=== PATIENT | female | born 1935 | race Two or more races ===

== ENCOUNTER 2021-08-22 | Emergency (ER) | payer MEDICARE, OTHER ==
[~2021-08-22] VITALS: Ht 160 cm; Wt 66.2 kg
[2021-08-22 00:59] VITALS: BP 160/83
== END 2021-08-22 00:46 | disposition left against medical advice (07) ==
LOC: ER 00:39
DX: I10 Essential (primary) hypertension (principal); Z53.21 Procedure and treatment not carried out due to patient leaving prior to being seen by health care provider

== ENCOUNTER 2023-01-03 20:10 | Emergency (ER) | payer MEDICARE, OTHER ==
[~2023-01-03] VITALS: Ht 154.9 cm; Wt 64.3 kg
[2023-01-03 20:43] VITALS: BP 135/70; RESP 18; O2SAT 96
[2023-01-03 23:38] VITALS: PULSE 83
== END 2023-01-03 21:39 | disposition left against medical advice (07) ==
LOC: ER 20:10
DX: I10 Essential (primary) hypertension (principal)
CPT/HCPCS: 93005

== ENCOUNTER 2024-04-22 17:09 | Emergency (ER) | payer MEDICARE, OTHER ==
[~2024-04-22] VITALS: Ht 162.6 cm; Wt 64.0 kg
[2024-04-22] MEDS: HYDROcodone-ACET 5/325MG TAB PO ONE (18:00)
--- NOTE | 2024-04-22 18:31 | DVH ---
CLINICAL INDICATION: Pain TECHNIQUE: 3 radiographic views of the cervical spine were obtained. Comparison: None FINDINGS/IMPRESSION: There is no evidence of acute fracture or spondylolisthesis Moderate to severe degenerative changes of the cervical spine. If symptoms persist, consider CT/ MRI for further evaluation.
[2024-04-22 19:00] VITALS: BP 132/78; TEMP 98.1
[2024-04-22 19:03] VITALS: PULSE 103; RESP 18; O2SAT 99
[2024-04-22] MEDS ORDERED: HYDR-4902 PO (19:25)
--- NOTE | 2024-04-22 19:26 | ED.PDOC ---
History of Present Illness HPI Comments This patient is an 88-year-old female who arrives the ED today with the family members due to complaints of severe neck pain concerns as well as blood pressure concerns. Patient states he had a of letters from his elevated, but at arrival her blood pressure was stave off. Family states the patient that utilized her medication possibly multiple times to address that concern. Patient has not followed up with the primary care provider for discussions related to her blood pressure issues. Additionally, patient complains of [id number] bilateral posterior neck pain for the past two days. Patient denies any traumatic events. Patient denies any history of cervical spine co ncerns. Vital signs were stable on arrival. 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 Family History Family History: Reviewed,noncontributory to illness, No family hx of Cancer, No family hx of DM, No family hx of Heart lashon, No family hx of HTN, No family hx ofKidney lashon, No family hx of Liver lashon, No family hx of Lung lashon, No family hx of Stroke Social History Smoker: Non-Smoker Alcohol: Denies ETOH Use Drugs: Denies Drug Use Lives In: Home Constitutional: denies: chills, diaphoresis, fatigue, fever, malaise, sweats, weakness, others EENTM: denies: blurred vision, double vision, ear bleeding, ear discharge, ear drainage, ear pain, ear ringing, eye pain, eye redness, hearing loss, mouth pain, mouth swelling, nasal discharge, nose bleeding, nose congestion, nose pain, photophobia, tearing, throat pain, throat swelling, voice changes, others Respiratory: denies: cough, hemoptysis, orthopnea, SOB at rest, shortness of breath, SOB with excertion, stridor, wheezing, others Cardiovascular: denies: chest pain, dizzy spells, diaphoresis, Dyspnea on exertion, edema, irregular heart beat, left arm pain, lightheadedness, palpitations, PND, syncope, others Gastrointestinal: denies: abdomen distended, abdominal pain, blood streaked bowels, constipated, diarrhea, dysphagia, difficulty swallowing, hematemesis, melena, nausea, poor appetite, poor fluid intake, rectal bleeding, rectal pain, vomiting, others Genitourinary: denies: abnormal vagina bleeding, burning, dyspareunia, dysuria, flank pain, frequency, hematuria, incontinence, pain, , vagina discharge, urgency, others Neurological: denies: dizziness, fainting, headache, left sided numbness, left sided weakness, numbness, paresthesia, pre-existing deficit, right sided numbness, right sided weakness, seizure, speech problems, tingling, tremors, weakness, others Musculoskeletal: reports: neck pain; denies: back pain, gout, joint pain, joint swelling, muscle pain, muscle stiffness, others Integumetry: denies: bruises, change in color, change in hair/nails, dryness, laceration, lesions, lumps, rash, wounds, others Allergic/Immunocompromised: denies: Difficulty Healing, Frequent Infections, Hives, Itching, others Hematologic/Lymphatic: denies: anemia, blood clots, easy bleeding, easy bruising, swollen glands, others Endocrine: denies: excessive hunger, excessive sweating, excessive thirst, excessive urination, flushing, intolerance to cold, intolerance to heat, unexplained weight gain, unexplained weight loss, others Psychiatric: denies: anxiety, bipolar disorder, depression, hopeless, panic disorder, schizophrenia, sleepless, suicidal, others Physical Exam General Appearance: Moderate Distress (Due to neck pain concerns), Normal HEENT: Normal ENT Inspection, Pharynx Normal, TMs Normal Neck: Other (Diffuse bilateral posterior cervical tenderness to palpation throughout. Moderate hypertonicity appreciated. No step-offs noted. Moderate reduced range of motion.) Respiratory: Chest Non-Tender, Lungs Clear, No Accessory Muscle Use, No Respiratory Distress, Normal Breath Sounds Cardiovascular: No Edema, No JVD, No Murmur, No Gallop, Normal Peripheral Pulses, Regular Rate/Rhythm Breast Exam: Deferred Gastrointestinal: No Organomegaly, Non Tender, No Pulsatile Mass, Normal Bowel Sounds, Soft Genitalia: Deferred Pelvic: Deferred Rectal: Deferred Extremities: No calf tenderness, Normal capillary refill, Normal inspection, Normal range of motion, Non-tender, No pedal edema Neurologic: Alert, offline cutter II-XII nml as Tested, No Motor Deficits, Normal Affect, Normal Mood, No Sensory Deficits Cerebellar Function: Normal Reflexes: Normal Skin: Dry, Normal Color, Warm Lymphatic: No Adenopathy Was a procedure done? Was a procedure done?: No Differential Dx Considerations may include: Degenerative disc disease of the cervical spine, cervical muscle strain, neck pain, hypertension X-Ray, Labs, Meds, VS Vital Signs Date Time Temp Pulse Resp B/P (MAP) Pulse Ox O2 Delivery O2 Flow Rate FiO2 04/22/24 19:03 103 18 99 Room Air* 0 21 04/22/24 19:00 98.1 106 18 132/78 (96) 97 98.1 04/22/24 17:25 98.9 71 16 132/57 (82) 98 Current Medications Medications (Trade) Dose Ordered Sig/Kareen Route Start Time Stop Time Status Last Admin Acetaminophen/ Hydrocodone Bitart ([place] 5/325MG Tab) 1 tab ONCE ONCE PO 04/22/24 18:00 04/22/24 18:01 DC 04/22/24 18:00 X-Ray, Labs, Meds, VS Comment All studies performed the ED were evaluated by me personally. Cervical spine series revealed degenerative disc disease throughout the cervical spine. No acute fractures were appreciated. Advised patient and family to follow up with primary care provider for discussions related to her cervical spine pain concerns and additionally, patient should have conversation with the primary care provider about what appears to be not well controlled hypertensive concerns and possible excessive medication use. Patient can utilize Tylenol and or Motrin as needed for cervical spine pain issues. Patient will be prescribed a short course of low-dose narcotic medication. Time of 1ST Reevaluation: 19:23 Reevaluation 1ST: Improved Consultation: PCP Patient Education/Counseling: Diagnosis, Treatment Family Education/Counseling: Diagnosis, Treatment Departure 1 Departure Time of Disposition: 19:23 Impression: Primary Impression: Degenerative joint disease of cervical spine Disposition: 01 HOME / SELF CARE / HOMELESS Condition: Stable Additional Instructions: Patient should utilize medication as needed for symptomatic relief as well as ice therapy. Patient needs to follow up with the primary care provider for discussions related to her degenerative disc disease of the cervical spine as well as what appears to be possible poorly controlled hypertensive concerns. e-Prescriptions Hydrocodone-Acetaminophen (Hydrocodone Bitartrate/AC 5-325 mg) 1 Tab Tab 1 TAB PO Q6HP PRN, #10 TAB Prov: DMITRIY NEWTON PAC 04/22/24 Discharged With: Self, Relative Critical Care Note Critical Care Time?: No Stability Stability form required: No Heart Score Heart Score: Heart Score Response (Comments) Value History N/A 0 EKG N/A 0 Age N/A 0 Risk Factors N/A 0 Troponin N/A 0 Total 0 DMITRIY NEWTON PAC Apr 22, 2024 19:26
[2024-04-22 21:02] VITALS: PULSE 106; RESP 18; O2SAT 97
== END 2024-04-22 21:00 | disposition home or self-care (01) ==
LOC: ER 17:09
DX: M47.812 Spondylosis without myelopathy or radiculopathy, cervical region (principal); M54.2 Cervicalgia; I10 Essential (primary) hypertension
CPT/HCPCS: 72040

== ENCOUNTER 2024-04-25 16:46 | Inpatient (IN) | payer MEDICARE, OTHER ==
[~2024-04-25] VITALS: Ht 162.6 cm; Wt 62.0 kg
[~2024-04-25 16:46] MED LIST: HYDR-4902 PO
--- NOTE | 2024-04-25 18:03 | DVH ---
Exam: CT CT AB PEL WO CON-NO ORAL OR IV History: L flank pain Comparison Study: None available at time of dictation. Technique: Multidetector CT of the abdomen and pelvis without contour. Axial, coronal and sagittal mu ltiplanar reformats were performed by the technologist on a separate workstation. Radiation Dose Information: CT Dose: CTDI volume is 8.95 mGy. Dose-length product is 456.02 mGy*cm Findings: Bibasilar atelectasis/scarring. Partially visualized heart is normal in size. Trace pericardial eff usion. Sub cm hypodense hepatic lesion that is too small to characterize. Otherwise, liver, spleen, gallbla dder, pancreas and right adrenal glands unremarkable. 1.5 cm left adrenal nodule measuring up to 19 H ounsfield units. Suggest a small splenule of the left upper abdominal quadrant. There is mild nonspecific bilateral perirenal fat stranding. No renal calculi or hydronephrosis. Bila teral ureters and urinary bladder are unremarkable. Uterus and adnexa unremarkable. Stomach is unremarkable. Small bowel loops unremarkable. Appendix is unremarkable. Large amount of fe monica material within the colon. Colonic diverticulosis without diverticulitis. No evidence of intraperitoneal free air. Minimal mesenteric edema. Atherosclerotic calcification of t he aorta with dilatation of the infrarenal aorta up to 2.1 cm. No significant lymphadenopathy. Tiny fat containing umbilical hernia. Compression fractures of inferior endplate of L2 and superior e ndplate of L3 of unknown chronicity. Multilevel moderate to severe degenerative changes of the lumbar spine. Diffuse demineralization. IMPRESSION: Mild nonspecific bilateral perirenal fat stranding. Correlate for possible infectious process. No hy dronephrosis or renal calculi bilaterally. Constipation. Colonic diverticulosis without diverticulitis. Impression fracture of inferior endplate of L2 and superior endplate of L3 with minimal loss of verte bral body height of unknown chronicity. Additional findings as above.
--- NOTE | 2024-04-25 18:14 | ED.PDOC ---
History of Present Illness HPI Comments 88Y F with PMHx HTN presents to ED for chief complaint lt hip pain and back pain x3days. Hip pain radiates down lt leg. Pt denies falls/trauma. Pt denies n/v/d and dysuria. Pt was seen at [facility] on 04/22/2024 for dx DJD c-spine and was sent home with Allen. Pt states she does not want to take the Allen and does not want anything strong. Pt states she is usually in bed at home and uses a walker when ambulating. Per pt's family member, pt is having an increased difficulty ambulating, lives alone and they are concerned she may fall. 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 Family History Family History: Reviewed,noncontributory to illness, No family hx of Cancer, No family hx of DM, No family hx of Heart lashon, No family hx of HTN, No family hx ofKidney lashon, No family hx of Liver lashon, No family hx of Lung lashon, No family hx of Stroke Social History Smoker: Non-Smoker Alcohol: Denies ETOH Use Drugs: Denies Drug Use Lives In: Home Constitutional: denies: chills, diaphoresis, fatigue, fever, malaise, sweats, weakness, others EENTM: denies: blurred vision, double vision, ear bleeding, ear discharge, ear drainage, ear pain, ear ringing, eye pain, eye redness, hearing loss, mouth pain, mouth swelling, nasal discharge, nose bleeding, nose congestion, nose pain, photophobia, tearing, throat pain, throat swelling, voice changes, others Respiratory: denies: cough, hemoptysis, orthopnea, SOB at rest, shortness of breath, SOB with excertion, stridor, wheezing, others Cardiovascular: denies: chest pain, dizzy spells, diaphoresis, Dyspnea on exertion, edema, irregular heart beat, left arm pain, lightheadedness, palpitations, PND, syncope, others Gastrointestinal: denies: abdomen distended, abdominal pain, blood streaked bowels, constipated, diarrhea, dysphagia, difficulty swallowing, hematemesis, melena, nausea, poor appetite, poor fluid intake, rectal bleeding, rectal pain, vomiting, others Genitourinary: denies: abnormal vagina bleeding, burning, dyspareunia, dysuria, flank pain, frequency, hematuria, incontinence, pain, , vagina discharge, urgency, others Neurological: denies: dizziness, fainting, headache, left sided numbness, left sided weakness, numbness, paresthesia, pre-existing deficit, right sided numbness, right sided weakness, seizure, speech problems, tingling, tremors, weakness, others Musculoskeletal: reports: back pain, joint pain; denies: gout, joint swelling, muscle pain, muscle stiffness, neck pain, others Integumetry: denies: bruises, change in color, change in hair/nails, dryness, laceration, lesions, lumps, rash, wounds, others Allergic/Immunocompromised: denies: Difficulty Healing, Frequent Infections, Hives, Itching, others Hematologic/Lymphatic: denies: anemia, blood clots, easy bleeding, easy bruising, swollen glands, others Endocrine: denies: excessive hunger, excessive sweating, excessive thirst, excessive urination, flushing, intolerance to cold, intolerance to heat, unexplained weight gain, unexplained weight loss, others Psychiatric: denies: anxiety, bipolar disorder, depression, hopeless, panic disorder, schizophrenia, sleepless, suicidal, others All Other Systems: Reviewed and Negative Physical Exam General Appearance: No Apparent Distress HEENT: Normal ENT Inspection Neck: Full Range of Motion, Normal Inspection Respiratory: Lungs Clear, No Accessory Muscle Use, No Respiratory Distress, Normal Breath Sounds Cardiovascular: No Edema, No JVD, Regular Rate/Rhythm Breast Exam: Deferred Gastrointestinal: Soft, Other (No abdominal tenderness to palpation. Left greater than right low back and lower flank tenderness to palpation.) Genitalia: Deferred Pelvic: Deferred Rectal: Deferred Extremities: Normal inspection, No pedal edema, Tender (Left hip diffuse soft tissue tenderness and pain with range of motion) Neurologic: Alert, No Motor Deficits, Normal Affect, Normal Mood, No Sensory Deficits Cerebellar Function: NOT DONE Reflexes: NOT DONE Skin: Dry, Pallor, Warm Lymphatic: NOT DONE Was a procedure done? Was a procedure done?: No Differential Dx Considerations may include: Musculoskeletal pain, disc disease/neuropathic pain, UTI, kidney stone, among others X-Ray, Labs, Meds, VS Vital Signs Date Time Temp Pulse Resp B/P (MAP) Pulse Ox O2 Delivery O2 Flow Rate FiO2 04/25/24 22:55 100 19 96 Room Air* 0 21 04/25/24 22:55 98.7 100 19 146/65 (92) 96 98.7 04/25/24 18:41 102 18 98 Room Air* 0 04/25/24 18:38 98.7 103 20 141/66 (91) 96 98.7 04/25/24 17:03 97.6 102 18 131/67 (88) 97 Lab Test 04/25/24 21:11 04/25/24 18:06 Range/Units Urine Color Yellow Yellow Urine Clarity Turbid H Clear Urine pH 7.0 5.0-9.0 Urine Specific Vian 1.023 1.001-1.035 Urine Protein 1+ H Negative Urine Ketones 1+ H Negative Urine Blood Negative Negative /uL Urine Nitrite 1+ H Negative Urine Bilirubin Negative Negative Urine Urobilinogen 3 H Negative mg/dL Urine Leukocyte Esterase 3+ Negative /uL Urine RBC 8 0 - 4 /hpf Urine WBC 634 0 - 5 /hpf Urine Squamous Epithelial Cells None seen <5 /hpf Urine Bacteria Many H None Seen /hpf Urine Mucus Few None Seen Urine Glucose Normal Normal mg/dL White Blood Count 8.4 4.4-10.8 10^3/uL Red Blood Count 4.43 4.0-5.20 10^6/uL Hemoglobin 12.8 12.2-16.2 g/dL Hematocrit 38.3 36.0-46.0 % Mean Corpuscular Volume 86.5 80.0-100.0 fL Mean Corpuscular Hemoglobin 28.9 28.0-32.0 pg Mean Corpuscular Hemoglobin Concent 33.4 32.0-36.0 g/dL Red Cell Distribution Width 16.3 H 11.8-14.3 % Platelet Count 267 140-450 10^3/uL Mean Platelet Volume 8.9 6.9-10.8 fL Neutrophils (%) (Auto) 62.1 37.0-80.0 % Lymphocytes (%) (Auto) 22.2 10.0-50.0 % Monocytes (%) (Auto) 15.2 H 0.0-12.0 % Eosinophils (%) (Auto) 0.1 0.0-7.0 % Basophils (%) (Auto) 0.4 0.0-2.0 % Neutrophils # (Auto) 5.2 1.6-8.6 10 ^3/uL Lymphocytes # (Auto) 1.9 0.4-5.4 10 ^3/uL Monocytes # (Auto) 1.3 0-1.3 10 ^3/uL Eosinophils # (Auto) 0 0-0.8 10 ^3/uL Basophils # (Auto) 0 0-0.2 10 ^3/uL Nucleated Red Blood Cells 0.1 % Sodium Level 137 136-145 mmol/L Potassium Level 3.6 3.5-5.1 mmol/L Chloride Level 104 98-107 mmol/L Carbon Dioxide Level 25 20-31 mmol/L Anion Gap 8 5-15 Blood Urea Nitrogen 13 9-23 mg/dL Creatinine 0.66 0.550-1.02 mg/dL Glomerular Filtration Rate Calc 84 >90 mL/min BUN/Creatinine Ratio 19.7 10.0-20.0 Serum Glucose 126 H 74-106 mg/dL Lactic Acid Level 1.3 0.4-2.0 mmol/L Calcium Level 9.8 8.7-10.4 mg/dL Current Medications Medications (Trade) Dose Ordered Sig/Kareen Route Start Time Stop Time Status Last Admin Sodium Chloride 1,000 ml @ 1,000 mls/hr Q1H ONCE IV 04/25/24 21:45 04/25/24 22:44 DC 04/25/24 23:22 PROCEDURE(s): ABPL - CT AB PEL WO CON-NO ORAL OR IV REASON: L flank pain ORDER NUMBER(s): [id number], ACCESSION NUMBER(s): [id number] Exam: CT CT AB PEL WO CON-NO ORAL OR IV History: L flank pain Comparison Study: None available at time of dictation. Technique: Multidetector CT of the abdomen and pelvis without contour. Axial, coronal and sagittal multiplanar reformats were performed by the technologist on a separate workstation. Radiation Dose Information: CT Dose: CTDI volume is 8.95 mGy. Dose-length product is 456.02 mGy*cm Findings: Bibasilar atelectasis/scarring. Partially visualized heart is normal in size. Trace pericardial effusion. Sub cm hypodense hepatic lesion that is too small to characterize. Otherwise, liver, spleen, gallbladder, pancreas and right adrenal glands unremarkable. 1.5 cm left adrenal nodule measuring up to 19 Hounsfield units. Suggest a small splenule of the left upper abdominal quadrant. There is mild nonspecific bilateral perirenal fat stranding. No renal calculi or hydronephrosis. Bilateral ureters and urinary bladder are unremarkable. Uterus and adnexa unremarkable. Stomach is unremarkable. Small bowel loops unremarkable. Appendix is unremarkable. Large amount of fecal material within the colon. Colonic diverticulosis without diverticulitis. No evidence of intraperitoneal free air. Minimal mesenteric edema. Atherosclerotic calcification of the aorta with dilatation of the infrarenal aorta up to 2.1 cm. No significant lymphadenopathy. Tiny fat containing umbilical hernia. Compression fractures of inferior endplate of L2 and superior endplate of L3 of unknown chronicity. Multilevel moderate to severe degenerative changes of the lumbar spine. Diffuse demineralization. IMPRESSION: Mild nonspecific bilateral perirenal fat stranding. Correlate for possible infectious process. No hydronephrosis or renal calculi bilaterally. Constipation. Colonic diverticulosis without diverticulitis. Impression fracture of inferior endplate of L2 and superior endplate of L3 with minimal loss of vertebral body height of unknown chronicity. Additional findings as above. X-Ray, Labs, Meds, VS Comment 88-year-old female with a history of hypertension brought in by family complaining of left flank pain, left hip pain, and difficulty ambulating Vitals remarkable for heart rate 102 Exam remarkable for left greater than right low back and lower flank tenderness to palpation, left hip diffuse soft tissue tenderness and painful range of motion CT abdomen and pelvis IMPRESSION: Mild nonspecific bilateral perirenal fat stranding. Correlate for possible infectious process. No hydronephrosis or renal calculi bilaterally. Constipation. Colonic diverticulosis without diverticulitis. Compression fracture of inferior endplate of L2 and superior endplate of L3 with minimal loss of vertebral body height of unknown chronicity. CBC, basic metabolic panel and lactate unremarkable for any abnormality of acute significance UA abnormal consistent with UTI Patient treated with the following in the ED: Tylenol 650 mg p.o. Patient declined pain medications other than Tylenol or ibuprofen. Patient 1 L 0.9 normal saline IV bolus. Levaquin 500mg IVPB was ordered. On re-evaluation, patient states pain has minimally improved. Plan is to admit the patient for PT/OT evaluation, pain control and IV antibiotics. Time of 1ST Reevaluation: 18:12 Reevaluation 1ST: Unchanged Time of 2ND Reevaluation: 20:47 Reevaluation 2ND: Improved Patient Education/Counseling: Diagnosis, Treatment Family Education/Counseling: Diagnosis, Treatment Departure 1 Departure Time of Disposition: 20:47 Impression: Primary Impression: Low back pain Qualified Codes: M54.50 - Low back pain, unspecified Additional Impressions: Flank pain Hip pain, left Pyelonephritis Disposition: ADMITTED INPATIENT Admit to: Med Surg Condition: Guarded Critical Care Note Critical Care Time?: No Stability Stability form required: No Heart Score Heart Score: Heart Score Response (Comments) Value History N/A 0 EKG N/A 0 Age N/A 0 Risk Factors N/A 0 Troponin N/A 0 Total 0 I personally scribed for HILL CARRILLO MD ([email or web address]) on 04/25/24 at 18:14. Electronically submitted by Cielo Eastman ([email or web address]). I personally scribed for HILL CARRILLO MD ([email or web address]) on 04/25/24 at 18:56. Electronically submitted by Cielo Eastman ([email or web address]). HILL CARRILLO MD Apr 25, 2024 18:14
[2024-04-25 18:27] LABS: Basophils # (auto) 0 10 ^3/uL (0-0.2); Basophils % (auto) 0.4 % (0.0-2.0); Eosinophils # (auto) 0 10 ^3/uL (0-0.8); Eosinophils % (auto) 0.1 % (0.0-7.0); Hematocrit 38.3 % (36.0-46.0); Hemoglobin 12.8 g/dL (12.2-16.2); Lymphocytes # (auto) 1.9 10 ^3/uL (0.4-5.4); Lymphocytes % (auto) 22.2 % (10.0-50.0); Mean Corpuscular Hemoglobin 28.9 pg (28.0-32.0); Mean Corpuscular Hgb Conc. 33.4 g/dL (32.0-36.0); Mean Corpuscular Volume 86.5 fL (80.0-100.0); Monocytes # (auto) 1.3 10 ^3/uL (0-1.3); Monocytes % (auto) 15.2 % (0.0-12.0); Neutrophils # (auto) 5.2 10 ^3/uL (1.6-8.6); Neutrophils % (auto) 62.1 % (37.0-80.0); Nucleated Red Blood Cells % 0.1 %; Platelet Count (auto) 267 10^3/uL (140-450); Red Blood Cells 4.43 10^6/uL (4.0-5.20); Red Cell Distribution Width 16.3 % (11.8-14.3); White Blood Cell 8.4 10^3/uL (4.4-10.8)
[2024-04-25 18:36] LABS: Chloride 104 mmol/L (98-107); Potassium 3.6 mmol/L (3.5-5.1); Sodium 137 mmol/L (136-145)
[2024-04-25 18:37] LABS: Anion Gap 8 (5-15); Carbon Dioxide 25 mmol/L (20-31)
[2024-04-25 18:38] LABS: Calcium 9.8 mg/dL (8.7-10.4)
[2024-04-25] MEDS: ACETAMINOPHEN 325 MG TAB PO ONE (18:39)
[2024-04-25 18:41] VITALS: PULSE 102; RESP 18; O2SAT 98
[2024-04-25 18:42] LABS: BUN/Creatinine Ratio 19.7 (10.0-20.0); Blood Urea Nitrogen 13 mg/dL (9-23); Glucose 126 mg/dL (74-106)
[2024-04-25 21:22] LABS: Urine Bacteria MANY /hpf (None Seen); Urine Blood Negative /uL (Negative); Urine Clarity Turbid (Clear); Urine Color Yellow (Yellow); Urine Mucus FEW (None Seen); Urine Protein, UAD 1+ (Negative); Urine Specific Gravity 1.023 (1.001-1.035); Urine Urobilinogen 3 mg/dL (Negative); Urine WBC 634 /hpf (0 - 5)
[2024-04-25] MEDS ORDERED: cefTRIAXone 1GM/50ML D5W 50 ML IV ONE (21:45)
[2024-04-25 22:55] VITALS: PULSE 100; RESP 19; O2SAT 96
[2024-04-25] MEDS: SODIUM CHLORIDE 0.9% 1,000 ML IV ONE (23:22)
[2024-04-26] MEDS: levoFLOXacin 500MG 100 ML IV ONE (00:54)
[2024-04-26] MEDS ORDERED: ONDANSETRON HCL 4 MG/2 ML VIAL IV PRN (07:15)
[2024-04-26] MEDS ORDERED: MORPHINE SULFATE INJ 2 MG/ml SYRG IV PRN (07:15)
[2024-04-26] MEDS ORDERED: HYDROcodone-ACET 5/325MG TAB PO PRN (07:15)
--- NOTE | 2024-04-26 07:20 | DVHHP2 ---
History of Present Illness Reason for Visit: Back pain History of Present Illness 88-year-old female presents with complaints of back pain. Patient reports with a two day history of worsening lower back pain. Denies any recent fall or trauma. She states unable to ambulate without a walker. She spends most of her time in bed due to the pain. Reports mild dysuria. No fever or chills. Cardiac or respiratory complaints. Past Medical History Hypertension Past Surgical History Denies Family History Noncontributory Smoke: No ALCOHOL: none Drugs: None Lives: Alone Review of Systems Review of Systems Review of systems are currently negative otherwise addressed in HPI. Allergies: Coded Allergies: Penicillins (Verified Allergy, Intermediate, 04/26/24) Medications Current Medications Medications Dose Ordered Sig/Kareen Route Start Time Stop Time Status Last Admin Dose Admin Ceftriaxone Sodium 50 ml @ 100 mls/hr DAILY@09 IV 04/26/24 09:00 UNV Acetaminophen/ Hydrocodone Bitart 1 tab Q4HP PRN PO 04/26/24 07:15 UNV Ondansetron HCl 4 mg Q4HP PRN IV 04/26/24 07:15 UNV Enoxaparin Sodium 40 mg DAILY SC 04/26/24 10:00 UNV Acetaminophen 650 mg Q6HP PRN PO 04/26/24 07:15 UNV Morphine Sulfate 2 mg Q4HPRN PRN IV 04/26/24 07:15 UNV Exam Vital Signs Vital Signs Date Time Temp Pulse Resp B/P (MAP) Pulse Ox O2 Delivery O2 Flow Rate FiO2 04/26/24 06:40 98 20 123/59 (80) 04/26/24 05:00 98 04/26/24 02:00 98.3 98.3 04/25/24 22:55 Room Air* 0 21 Exam Gen: 88-year-old female in mild distress Skin: Warm, dry, normal color and texture, no rash. HEENT: Normocephalic atraumatic, mucous membranes moist and pink. Neck: Cervical and supraclavicular nodes normal without enlargement, trachea is midline, thyroid gland is normal without masses. Pulmonary: Clear to auscultation and percussion bilaterally. Cardiac: Regular rate and rhythm. No murmur Abdomen: Soft, nontender, nondistended, bowel sounds present all 4 quadrants, no guarding, no rigidity, no organomegaly. Extremities: No cyanosis, clubbing, no edema Neuro: Cranial nerves II through XII grossly intact, normal affect and speech, no focal motor deficits. Labs/Xrays ORDERING PHYSICIAN: HILL CARRILLO MD PROCEDURE(s): ABPL - CT AB PEL WO CON-NO ORAL OR IV REASON: L flank pain ORDER NUMBER(s): [id number], ACCESSION NUMBER(s): [id number] Exam: CT CT AB PEL WO CON-NO ORAL OR IV History: L flank pain Comparison Study: None available at time of dictation. Technique: Multidetector CT of the abdomen and pelvis without contour. Axial, coronal and sagittal multiplanar reformats were performed by the technologist on a separate workstation. Radiation Dose Information: CT Dose: CTDI volume is 8.95 mGy. Dose-length product is 456.02 mGy*cm Findings: Bibasilar atelectasis/scarring. Partially visualized heart is normal in size. Trace pericardial effusion. Sub cm hypodense hepatic lesion that is too small to characterize. Otherwise, liver, spleen, gallbladder, pancreas and right adrenal glands unremarkable. 1.5 cm left adrenal nodule measuring up to 19 Hounsfield units. Suggest a small splenule of the left upper abdominal quadrant. There is mild nonspecific bilateral perirenal fat stranding. No renal calculi or hydronephrosis. Bilateral ureters and urinary bladder are unremarkable. Uterus and adnexa unremarkable. Stomach is unremarkable. Small bowel loops unremarkable. Appendix is unremarkable. Large amount of fecal material within the colon. Colonic diverticulosis without diverticulitis. No evidence of intraperitoneal free air. Minimal mesenteric edema. Atherosclerotic calcification of the aorta with dilatation of the infrarenal aorta up to 2.1 cm. No significant lymphadenopathy. Tiny fat containing umbilical hernia. Compression fractures of inferior endplate of L2 and superior endplate of L3 of unknown chronicity. Multilevel moderate to severe degenerative changes of the lumbar spine. Diffuse demineralization. IMPRESSION: Mild nonspecific bilateral perirenal fat stranding. Correlate for possible infectious process. No hydronephrosis or renal calculi bilaterally. Constipation. Colonic diverticulosis without diverticulitis. Impression fracture of inferior endplate of L2 and superior endplate of L3 with minimal loss of vertebral body height of unknown chronicity. Additional findings as above. Labs Test 04/25/24 21:11 04/25/24 18:06 Range/Units Urine Color Yellow Yellow Urine Clarity Turbid H Clear Urine pH 7.0 5.0-9.0 Urine Specific [place] 1.023 1.001-1.035 Urine Protein 1+ H Negative Urine Ketones 1+ H Negative Urine Blood Negative Negative /uL Urine Nitrite 1+ H Negative Urine Bilirubin Negative Negative Urine Urobilinogen 3 H Negative mg/dL Urine Leukocyte Esterase 3+ Negative /uL Urine RBC 8 0 - 4 /hpf Urine WBC 634 0 - 5 /hpf Urine Squamous Epithelial Cells None seen <5 /hpf Urine Bacteria Many H None Seen /hpf Urine Mucus Few None Seen Urine Glucose Normal Normal mg/dL White Blood Count 8.4 4.4-10.8 10^3/uL Red Blood Count 4.43 4.0-5.20 10^6/uL Hemoglobin 12.8 12.2-16.2 g/dL Hematocrit 38.3 36.0-46.0 % Mean Corpuscular Volume 86.5 80.0-100.0 fL Mean Corpuscular Hemoglobin 28.9 28.0-32.0 pg Mean Corpuscular Hemoglobin Concent 33.4 32.0-36.0 g/dL Red Cell Distribution Width 16.3 H 11.8-14.3 % Platelet Count 267 140-450 10^3/uL Mean Platelet Volume 8.9 6.9-10.8 fL Neutrophils (%) (Auto) 62.1 37.0-80.0 % Lymphocytes (%) (Auto) 22.2 10.0-50.0 % Monocytes (%) (Auto) 15.2 H 0.0-12.0 % Eosinophils (%) (Auto) 0.1 0.0-7.0 % Basophils (%) (Auto) 0.4 0.0-2.0 % Neutrophils # (Auto) 5.2 1.6-8.6 10 ^3/uL Lymphocytes # (Auto) 1.9 0.4-5.4 10 ^3/uL Monocytes # (Auto) 1.3 0-1.3 10 ^3/uL Eosinophils # (Auto) 0 0-0.8 10 ^3/uL Basophils # (Auto) 0 0-0.2 10 ^3/uL Nucleated Red Blood Cells 0.1 % Sodium Level 137 136-145 mmol/L Potassium Level 3.6 3.5-5.1 mmol/L Chloride Level 104 98-107 mmol/L Carbon Dioxide Level 25 20-31 mmol/L Anion Gap 8 5-15 Blood Urea Nitrogen 13 9-23 mg/dL Creatinine 0.66 0.550-1.02 mg/dL Glomerular Filtration Rate Calc 84 >90 mL/min BUN/Creatinine Ratio 19.7 10.0-20.0 Serum Glucose 126 H 74-106 mg/dL Lactic Acid Level 1.3 0.4-2.0 mmol/L Calcium Level 9.8 8.7-10.4 mg/dL Assessment/Plan Assessment/Plan Assessment Acute pyelonephritis Hypertension Lumbar fracture Plan Admit the patient to [facility] to the hospitalist Pain management Orthopedic consultation Rocephin Continue treatment per orders. Plan discussed with: Patient My Orders Orders - GENARO OLIVEROS Procedure Category Date Status Time Ceftriaxone 1gm/50ml PHA 04/26/24 Logged D5w (Rocephin) 09:00 * Orthopedic Consult CONS 04/26/24 Transmitted 07:02 Basic Metabolic Panel LAB 04/27/24 Verified 04:00 Admit ADMIT 04/26/24 Transmitted 07:02 Hydrocodone-Acet PHA 04/26/24 Logged 5/325mg Tab ([place] 07:15 Ondansetron Hcl PHA 04/26/24 Logged (Zofran) 07:15 Enoxaparin Sodium PHA 04/26/24 Logged (Lovenox) 10:00 Cardiac DIET 04/26/24 Transmitted Diet-2gna,Lofat,Lochol Breakfast Condition: Stable DONATO 04/26/24 In Process 07:02 Acetaminophen Tablet PHA 04/26/24 Logged (Tylenol Tablet) 07:15 Bedrest With Bathroom DONATO 04/26/24 In Process Privileg 07:02 Morphine Sulfate PHA 04/26/24 Logged Injection 07:15 Date of Service: Apr 26, 2024 Billing Provider: GENARO OLIVEROS Common Visit Codes: [id number] INP/OBS CARE (MOD) GENARO OLIVEROS Apr 26, 2024 07:20
[2024-04-26 08:40] VITALS: PULSE 100; RESP 19; O2SAT 96
[2024-04-26] MEDS: cefTRIAXone 1GM/50ML D5W 50 ML IV SCH (09:13)
[2024-04-26] MEDS: ENOXAPARIN SOD 40 MG/0.4 ML SYRINGE SC SCH (10:00)
--- NOTE | 2024-04-26 13:06 | DVHPN2 ---
Subjective 04/26 - had flank pain, bladder pain. flank pain improving. still having some intermittnet bladder pains. no sandoval. will needs PVR, cont IV ctx, pend ucx sens, need pcp note (check allergies, apparently has hx allx to many abx), need ortho spinal consult (though, # likely old), pain meds for cervical DJD, HTN losartan will start if needed. Reviewed: H&P Changes from previous H/P or p: No Changes General: Per HPI Objective Vitals Vital Signs Date Time Temp Pulse Resp B/P (MAP) Pulse Ox O2 Delivery O2 Flow Rate FiO2 04/26/24 10:32 95 04/26/24 08:40 19 96 Room Air* 0 21 04/26/24 08:00 132/62 (85) 04/26/24 02:00 98.3 98.3 Exam GEN: Healthy appearing, well-developed, NAD. HEENT: NC/AT; MMM. CV: RRR, no m/r/g. LUNGS: CTAB, no w/r/c. ABD: Soft, NT/ND, NBS, no masses or organomegaly. Suprapubic tenderness EXT: skin Warm, well perfused. no rashes. No clubbing, cyanosis, or edema. NEURO: Ambulating with no limitations. No focal deficits. Medications Current Medications Medications Dose Ordered Sig/Kareen Route Start Time Stop Time Status Last Admin Dose Admin Ceftriaxone Sodium 50 ml @ 100 mls/hr DAILY@09 IV 04/26/24 09:00 04/26/24 09:13 100 MLS/HR Acetaminophen/ Hydrocodone Bitart 1 tab Q4HP PRN PO 04/26/24 07:15 Ondansetron HCl 4 mg Q4HP PRN IV 04/26/24 07:15 Enoxaparin Sodium 40 mg DAILY SC 04/26/24 10:00 Acetaminophen 650 mg Q6HP PRN PO 04/26/24 07:15 Morphine Sulfate 2 mg Q4HPRN PRN IV 04/26/24 07:15 Laboratory Results Laboratory Tests 04/25/24 18:06 Chemistry Test 04/25/24 18:06 Calcium Level 9.8 mg/dL (8.7-10.4) Urinalysis Test 04/25/24 21:11 Urine Color Yellow (Yellow) Urine Clarity Turbid (Clear) H Urine pH 7.0 (5.0-9.0) Urine Specific [place] 1.023 (1.001-1.035) Urine Protein 1+ (Negative) H Urine Ketones 1+ (Negative) H Urine Blood Negative /uL (Negative) Urine Nitrite 1+ (Negative) H Urine Bilirubin Negative (Negative) Urine Urobilinogen 3 mg/dL (Negative) H Urine Leukocyte Esterase 3+ /uL (Negative) Urine RBC 8 /hpf (0 - 4) Urine WBC 634 /hpf (0 - 5) Urine Squamous Epithelial Cells None seen /hpf (<5) Urine Bacteria Many /hpf (None Seen) H Urine Mucus Few (None Seen) Urine Glucose Normal mg/dL (Normal) Microbiology Microbiology Date/Time Source Procedure Growth Status 04/25/24 21:11 Voided Urine Urine Culture - Preliminary Resulted Labs and/or images reviewed: Labs reviewed by me, Image(s) reviewed by me Assessment/Plan Assessment/Plan 04/26 - had flank pain, bladder pain. flank pain improving. still having some intermittnet bladder pains. no sandoval. will needs PVR, cont IV ctx, pend ucx sens, need pcp note (check allergies, apparently has hx allx to many abx), need ortho spinal consult (though, # likely old), pain meds for cervical DJD, HTN losartan will start if needed. # left flank pain #UTI #Pyelonephritis - CT abdomen/pelvis is unconcerning for any acute process or any nephrolithiasis - UA suggestive of UTI - ucx w GNR. - on CTX. #Left spinal # - ortho consulted. no significant pain. #HTN - pt endorses on losartan. We will hold off right now given concern for infection (UTI) #cervical DJD pain - will use voltaren (not in formulary) vs po prn analgesics - p.r.n. analgesics -trial baclofen 5 mg q.p.m. Diet regular DVT prophylaxis Lovenox GI prophylaxis patient tolerating diet Plan discussed with: Patient, Daughter Date of Service: Apr 26, 2024 Billing Provider: CHEMO TRAN MD Common Visit Codes: [id number] INP/OBS CARE(HIGH) CHEMO TRAN MD Apr 26, 2024 13:06
[2024-04-26] MEDS: IBUPROFEN 400 MG TAB PO ONE (13:15)
[2024-04-26 15:31] LABS: Basophils # (auto) 0 10 ^3/uL (0-0.2); Basophils % (auto) 0.4 % (0.0-2.0); Eosinophils # (auto) 0 10 ^3/uL (0-0.8); Eosinophils % (auto) 0.2 % (0.0-7.0); Hematocrit 36.7 % (36.0-46.0); Hemoglobin 12.4 g/dL (12.2-16.2); Lymphocytes # (auto) 1.5 10 ^3/uL (0.4-5.4); Mean Corpuscular Hemoglobin 29.1 pg (28.0-32.0); Mean Corpuscular Hgb Conc. 33.7 g/dL (32.0-36.0); Mean Corpuscular Volume 86.3 fL (80.0-100.0); Neutrophils # (auto) 8.3 10 ^3/uL (1.6-8.6); Neutrophils % (auto) 76.4 % (37.0-80.0); Platelet Count (auto) 255 10^3/uL (140-450); Red Blood Cells 4.25 10^6/uL (4.0-5.20); Red Cell Distribution Width 16.2 % (11.8-14.3); White Blood Cell 10.9 10^3/uL (4.4-10.8)
[2024-04-26 15:47] LABS: Alanine Aminotransferase 16 U/L (7-40); Albumin 3.6 g/dL (3.2-4.8); Alkaline Phosphatase 83 U/L (46-116); Anion Gap 8 (5-15); Aspartate Aminotransferase 17 U/L (13-40); BUN/Creatinine Ratio 22.2 (10.0-20.0); Blood Urea Nitrogen 10 mg/dL (9-23); Calcium 9.4 mg/dL (8.7-10.4); Carbon Dioxide 22 mmol/L (20-31); Chloride 107 mmol/L (98-107); Glucose 123 mg/dL (74-106); Potassium 3.6 mmol/L (3.5-5.1); Sodium 137 mmol/L (136-145)
[2024-04-26 15:48] LABS: Bilirubin, Total 0.5 mg/dL (0.2-1.0); Total Protein 5.9 g/dL (5.7-8.2)
[2024-04-26] MEDS: BACLOFEN 10 MG TAB PO SCH (18:00)
[2024-04-26 18:21] VITALS: BP 148/71; PULSE 101; RESP 18; TEMP 98.1; O2SAT 96
[2024-04-26 18:40] VITALS: RESP 16
[2024-04-26 19:10] VITALS: BP 148/71; PULSE 99; RESP 18; TEMP 98.7; O2SAT 96
[2024-04-26] MEDS ORDERED: LOSA-533 PO (19:40)
[2024-04-26] MEDS: ACETAMINOPHEN 325 MG TAB PO PRN (20:09)
[2024-04-26 21:00] VITALS: BP 147/76; PULSE 106; RESP 20; TEMP 98; O2SAT 96
[2024-04-27 00:54] VITALS: BP 114/53; PULSE 85; RESP 16; TEMP 97.7; O2SAT 97
[2024-04-27 05:00] VITALS: BP 144/73; PULSE 101; RESP 18; TEMP 97.7; O2SAT 98
[2024-04-27 07:10] LABS: Chloride 105 mmol/L (98-107); Sodium 134 mmol/L (136-145)
[2024-04-27 07:11] LABS: Anion Gap 6 (5-15); Carbon Dioxide 23 mmol/L (20-31)
[2024-04-27 07:12] LABS: Calcium 9.5 mg/dL (8.7-10.4)
[2024-04-27 07:17] LABS: BUN/Creatinine Ratio 15.1 (10.0-20.0); Blood Urea Nitrogen 8 mg/dL (9-23); Glucose 122 mg/dL (74-106)
[2024-04-27 09:00] VITALS: BP 110/71; PULSE 90; RESP 20; TEMP 97.6; O2SAT 98
[2024-04-27 09:05] LABS: Basophils # (auto) 0 10 ^3/uL (0-0.2); Basophils % (auto) 0.1 % (0.0-2.0); Eosinophils # (auto) 0 10 ^3/uL (0-0.8); Eosinophils % (auto) 0.4 % (0.0-7.0); Hematocrit 37.3 % (36.0-46.0); Hemoglobin 12.4 g/dL (12.2-16.2); Lymphocytes # (auto) 1.1 10 ^3/uL (0.4-5.4); Lymphocytes % (auto) 11.3 % (10.0-50.0); Mean Corpuscular Hemoglobin 28.9 pg (28.0-32.0); Mean Corpuscular Hgb Conc. 33.2 g/dL (32.0-36.0); Mean Corpuscular Volume 86.9 fL (80.0-100.0); Monocytes # (auto) 0.8 10 ^3/uL (0-1.3); Neutrophils # (auto) 7.8 10 ^3/uL (1.6-8.6); Neutrophils % (auto) 80.2 % (37.0-80.0); Platelet Count (auto) 269 10^3/uL (140-450); Red Blood Cells 4.29 10^6/uL (4.0-5.20); Red Cell Distribution Width 15.9 % (11.8-14.3); White Blood Cell 9.7 10^3/uL (4.4-10.8)
[2024-04-27] MEDS: POLYETHYLENE GLYCOL 17 GM PWDR PO SCH (09:05)
[2024-04-27 09:23] LABS: Albumin 3.6 g/dL (3.2-4.8); Bilirubin, Direct 0.2 mg/dL (<0.3); Bilirubin, Total 0.7 mg/dL (0.2-1.0); Total Protein 5.9 g/dL (5.7-8.2)
[2024-04-27 12:20] VITALS: BP 125/55; PULSE 93; RESP 20; TEMP 98.8; O2SAT 96
--- NOTE | 2024-04-27 14:32 | DVHPN2 ---
Subjective 04/26 - had flank pain, bladder pain. flank pain improving. still having some intermittnet bladder pains. no sandoval. will needs PVR, cont IV ctx, pend ucx sens, need pcp note (check allergies, apparently has hx allx to many abx), need ortho spinal consult (though, # likely old), pain meds for cervical DJD, HTN losartan will start if needed. - - 04/27 - she has mild distress from coughing. but overall appears tolerating cough and her pains well.. multiple issues needing outpatient appnts (manager call center, ortho, pain specialist?). her cough is ongoing since senior living. she relased mar 2024 (approx 1month ago). could be exposed to rst organisms, could be health risk. gets tachycardic with coughing. has complains of uterine or vaginal prolapse. complains of BL hip dislocations with hx BL hip LIANNA. hx hiv on monthly injn. most issues are chronic. Reviewed: H&P Changes from previous H/P or p: No Changes General: Per HPI Objective Vitals Vital Signs Date Time Temp Pulse Resp B/P (MAP) Pulse Ox O2 Delivery O2 Flow Rate FiO2 04/27/24 12:20 98.8 93 20 125/55 (78) 96 98.8 04/26/24 18:40 Room Air* 0 21 Intake/Output Intake and Output 04/27/24 07:00 Intake Total 290 ml Balance 290 ml Intake Oral 240 ml IV Total 50 ml # Voids 1 # Bowel Movements 1 Exam GEN: Healthy appearing, well-developed, NAD. HEENT: NC/AT; MMM. CV: RRR, no m/r/g. LUNGS: CTAB, no w/r/c. ABD: Soft, NT/ND, NBS, no masses or organomegaly. Suprapubic tenderness EXT: skin Warm, well perfused. no rashes. No clubbing, cyanosis, or edema. NEURO: Ambulating with no limitations. No focal deficits. Medications Current Medications Medications Dose Ordered Sig/Kareen Route Start Time Stop Time Status Last Admin Dose Admin Ceftriaxone Sodium 50 ml @ 100 mls/hr DAILY@09 IV 04/26/24 09:00 04/27/24 09:05 100 MLS/HR Acetaminophen/ Hydrocodone Bitart 1 tab Q4HP PRN PO 04/26/24 07:15 Ondansetron HCl 4 mg Q4HP PRN IV 04/26/24 07:15 Enoxaparin Sodium 40 mg DAILY SC 04/26/24 10:00 04/27/24 09:04 40 MG Acetaminophen 650 mg Q6HP PRN PO 04/26/24 07:15 04/27/24 10:55 650 MG Morphine Sulfate 2 mg Q4HPRN PRN IV 04/26/24 07:15 Baclofen 5 mg QPM PO 04/26/24 18:00 04/28/24 16:00 Polyethylene Glycol 17 gm DAILY PO 04/27/24 10:00 05/04/24 11:00 04/27/24 09:05 17 GM Laboratory Results Laboratory Tests 04/27/24 06:20 Chemistry Test 04/26/24 15:15 04/27/24 06:20 Albumin 3.6 g/dL (3.2-4.8) 3.6 g/dL (3.2-4.8) Calcium Level 9.4 mg/dL (8.7-10.4) 9.5 mg/dL (8.7-10.4) Total Protein 5.9 g/dL (5.7-8.2) 5.9 g/dL (5.7-8.2) LFT Test 04/26/24 15:15 04/27/24 06:20 Alanine Aminotransferase (ALT) 16 U/L (7-40) 16 U/L (7-40) Alkaline Phosphatase 83 U/L (46-116) 82 U/L (46-116) Aspartate Amino Transferase (AST) 17 U/L (13-40) 15 U/L (13-40) Total Bilirubin 0.5 mg/dL (0.2-1.0) 0.7 mg/dL (0.2-1.0) Direct Bilirubin 0.2 mg/dL (<0.3) Urinalysis Test 04/25/24 21:11 Urine Color Yellow (Yellow) Urine Clarity Turbid (Clear) H Urine pH 7.0 (5.0-9.0) Urine Specific [place] 1.023 (1.001-1.035) Urine Protein 1+ (Negative) H Urine Ketones 1+ (Negative) H Urine Blood Negative /uL (Negative) Urine Nitrite 1+ (Negative) H Urine Bilirubin Negative (Negative) Urine Urobilinogen 3 mg/dL (Negative) H Urine Leukocyte Esterase 3+ /uL (Negative) Urine RBC 8 /hpf (0 - 4) Urine WBC 634 /hpf (0 - 5) Urine Squamous Epithelial Cells None seen /hpf (<5) Urine Bacteria Many /hpf (None Seen) H Urine Mucus Few (None Seen) Urine Glucose Normal mg/dL (Normal) Microbiology Microbiology Date/Time Source Procedure Growth Status 04/25/24 21:11 Voided Urine Urine Culture - Final Complete Labs and/or images reviewed: Labs reviewed by me, Image(s) reviewed by me Assessment/Plan Assessment/Plan 04/26 - had flank pain, bladder pain. flank pain improving. still having some intermittnet bladder pains. no sandoval. will needs PVR, cont IV ctx, pend ucx sens, need pcp note (check allergies, apparently has hx allx to many abx), need ortho spinal consult (though, # likely old), pain meds for cervical DJD, HTN losartan will start if needed. 04/27 - leukocytosis resolved. there is neutrophilia/left shift. will tx one more day IV given high risk UTI # left flank pain #UTI #Pyelonephritis - CT abdomen/pelvis is unconcerning for any acute process or any nephrolithiasis - UA suggestive of UTI - ucx w GNR. - on CTX. #weakness #deconditioning - she is very resistnat to idea of SNF /rehab. - treat issues above - PT eval tomrrow #Left spinal # - ortho consulted. no significant pain. #HTN - pt endorses on losartan. We will hold off right now given concern for infection (UTI) #cervical DJD pain - will use voltaren (not in formulary) vs po prn analgesics - p.r.n. analgesics -trial baclofen 5 mg q.p.m. #constiaption - bowel regiemn started. not having any BM. will try enema prn. Diet regular DVT prophylaxis Lovenox GI prophylaxis patient tolerating diet Plan discussed with: Patient My Orders Orders - CHEMO TRAN MD Procedure Category Date Status Time Polyethylene Glycol PHA 04/27/24 In Process 17g Powder (Miralax 10:00 Date of Service: Apr 27, 2024 Billing Provider: CHEMO TRAN MD Common Visit Codes: [id number] INP/OBS CARE(HIGH) CHEMO TRAN MD Apr 27, 2024 14:32
[2024-04-27] MEDS ORDERED: PATIENTS OWN MEDICATION TOP PRN (16:00)
[2024-04-27 17:00] VITALS: BP 143/57; PULSE 97; RESP 20; TEMP 98.5; O2SAT 96
[2024-04-27] MEDS: FLEET ENEMA(ADULT) 135 ML PR ONE (20:15)
[2024-04-27 20:54] VITALS: BP 123/49; PULSE 110; RESP 18; TEMP 98.6; O2SAT 97
[2024-04-28 00:53] VITALS: BP 124/57; PULSE 102; RESP 20; TEMP 97.9; O2SAT 95
[2024-04-28 05:00] VITALS: BP 113/49; PULSE 89; RESP 16; TEMP 98.3; O2SAT 96
[2024-04-28 09:00] VITALS: BP 113/54; PULSE 90; RESP 19; TEMP 98.2; O2SAT 98
[2024-04-28] MEDS: DICLOFENAC SODIUM 1% TOP PRN (10:52)
[2024-04-28 13:00] VITALS: BP 119/59; PULSE 87; RESP 19; TEMP 98; O2SAT 96
[2024-04-28 17:25] VITALS: BP 118/57; PULSE 94; RESP 19; TEMP 98; O2SAT 96
--- NOTE | 2024-04-28 20:09 | DVHPN2 ---
Subjective 04/26 - had flank pain, bladder pain. flank pain improving. still having some intermittnet bladder pains. no sandoval. will needs PVR, cont IV ctx, pend ucx sens, need pcp note (check allergies, apparently has hx allx to many abx), need ortho spinal consult (though, # likely old), pain meds for cervical DJD, HTN losartan will start if needed. - 04/27 - she has mild distress from coughing. but overall appears tolerating cough and her pains well.. multiple issues needing outpatient appnts (turnaround planner, ortho, pain specialist?). her cough is ongoing since retirement. she relased mar 2024 (approx 1month ago). could be exposed to rst organisms, could be health risk. gets tachycardic with coughing. has complains of uterine or vaginal prolapse. complains of BL hip dislocations with hx BL hip LIANNA. hx hiv on monthly injn. most issues are chronic. - 04/28 - paient continues to feel constipated. contiuning laxatives. PT to eval today. Afebrile, no dysuria no complains of urinary obstruction. Reviewed: H&P Changes from previous H/P or p: No Changes General: Per HPI Objective Vitals Vital Signs Date Time Temp Pulse Resp B/P (MAP) Pulse Ox O2 Delivery O2 Flow Rate FiO2 04/28/24 17:25 98.0 94 19 118/57 (77) 96 98.0 04/28/24 08:00 Room Air* 0 21 Intake/Output Intake and Output 04/28/24 07:00 Intake Total 940 ml Balance 940 ml Intake Oral 940 ml # Voids 12 Exam GEN: Healthy appearing, well-developed, NAD. HEENT: NC/AT; MMM. CV: RRR, no m/r/g. LUNGS: CTAB, no w/r/c. ABD: Soft, NT/ND, NBS, no masses or organomegaly. EXT: skin Warm, well perfused. no rashes. No clubbing, cyanosis, or edema. NEURO: Ambulating with no limitations. No focal deficits. Medications Current Medications Medications Dose Ordered Sig/Kareen Route Start Time Stop Time Status Last Admin Dose Admin Ceftriaxone Sodium 50 ml @ 100 mls/hr DAILY@09 IV 04/26/24 09:00 04/28/24 09:04 100 MLS/HR Acetaminophen/ Hydrocodone Bitart 1 tab Q4HP PRN PO 04/26/24 07:15 Ondansetron HCl 4 mg Q4HP PRN IV 04/26/24 07:15 Enoxaparin Sodium 40 mg DAILY SC 04/26/24 10:00 04/27/24 09:04 40 MG Acetaminophen 650 mg Q6HP PRN PO 04/26/24 07:15 04/27/24 10:55 650 MG Morphine Sulfate 2 mg Q4HPRN PRN IV 04/26/24 07:15 Polyethylene Glycol 17 gm DAILY PO 04/27/24 10:00 05/04/24 11:00 04/28/24 09:04 17 GM Patient Own Medication 1 QID PRN TOP 04/27/24 20:30 04/28/24 10:52 1 Laboratory Results Laboratory Tests 04/27/24 06:20 Urinalysis Test 04/25/24 21:11 Urine Color Yellow (Yellow) Urine Clarity Turbid (Clear) H Urine pH 7.0 (5.0-9.0) Urine Specific [place] 1.023 (1.001-1.035) Urine Protein 1+ (Negative) H Urine Ketones 1+ (Negative) H Urine Blood Negative /uL (Negative) Urine Nitrite 1+ (Negative) H Urine Bilirubin Negative (Negative) Urine Urobilinogen 3 mg/dL (Negative) H Urine Leukocyte Esterase 3+ /uL (Negative) Urine RBC 8 /hpf (0 - 4) Urine WBC 634 /hpf (0 - 5) Urine Squamous Epithelial Cells None seen /hpf (<5) Urine Bacteria Many /hpf (None Seen) H Urine Mucus Few (None Seen) Urine Glucose Normal mg/dL (Normal) Microbiology Microbiology Date/Time Source Procedure Growth Status 04/25/24 21:11 Voided Urine Urine Culture - Final Complete Labs and/or images reviewed: Labs reviewed by me, Image(s) reviewed by me Assessment/Plan Assessment/Plan update - 04/28 - paibijal continues to feel constipated. contiuning laxatives. PT to eval today. Afebrile, no dysuria no complains of urinary obstruction. plan snf vs HH. # left flank pain #UTI #Pyelonephritis - CT abdomen/pelvis is unconcerning for any acute process or any nephrolithiasis - UA suggestive of UTI - ucx final w [facility]. - on CTX (day 3 on 04/28) #weakness #deconditioning - she is very resistnat to idea of SNF /rehab. - treat issues above - PT eval today #Left spinal # - ortho consulted. no significant pain. no acute concern for inpatient intervention. pt asymptomatic. #HTN - pt endorses on losartan. We will hold off right now given concern for infection (UTI) #cervical DJD pain - will use voltaren (not in formulary) vs po prn analgesics - p.r.n. analgesics -trial baclofen 5 mg q.p.m. #constiaption - bowel regiemn started. not having any BM. will try enema prn. - resolved 04/28. Diet regular DVT prophylaxis Lovenox GI prophylaxis patient tolerating diet Plan discussed with: Patient My Orders Orders - CHEMO TRAN MD Procedure Category Date Status Time Patients Own PHA 04/27/24 In Process Medication 20:30 Date of Service: Apr 28, 2024 Billing Provider: CHEMO TRAN MD Common Visit Codes: [id number] INP/OBS CARE(HIGH) CHEMO TRAN MD Apr 28, 2024 20:09
[2024-04-28 21:00] VITALS: BP 123/51; PULSE 100; RESP 18; TEMP 98.5; O2SAT 98
[2024-04-29 01:00] VITALS: BP 137/61; PULSE 100; RESP 17; TEMP 98.5; O2SAT 94
[2024-04-29 05:00] VITALS: BP 135/68; PULSE 91; RESP 17; TEMP 98; O2SAT 97
--- NOTE | 2024-04-29 08:00 | DVHPN2 ---
Subjective 04/26 - had flank pain, bladder pain. flank pain improving. still having some intermittnet bladder pains. no sandoval. will needs PVR, cont IV ctx, pend ucx sens, need pcp note (check allergies, apparently has hx allx to many abx), need ortho spinal consult (though, # likely old), pain meds for cervical DJD, HTN losartan will start if needed. - 04/27 - she has mild distress from coughing. but overall appears tolerating cough and her pains well.. multiple issues needing outpatient appnts (sandwich board carrier, ortho, pain specialist?). her cough is ongoing since custodial. she relased mar 2024 (approx 1month ago). could be exposed to rst organisms, could be health risk. gets tachycardic with coughing. has complains of uterine or vaginal prolapse. complains of BL hip dislocations with hx BL hip LIANNA. hx hiv on monthly injn. most issues are chronic. - 04/28 - paient continues to feel constipated. contiuning laxatives. PT to eval today. Afebrile, no dysuria no complains of urinary obstruction. Reviewed: H&P Changes from previous H/P or p: No Changes General: Per HPI Objective Vitals Vital Signs Date Time Temp Pulse Resp B/P (MAP) Pulse Ox O2 Delivery O2 Flow Rate FiO2 04/29/24 05:00 98.0 91 17 135/68 (90) 97 98.0 04/28/24 08:00 Room Air* 0 21 Intake/Output Intake and Output 04/29/24 07:00 Intake Total 715 ml Balance 715 ml Intake Oral 665 ml IV Total 50 ml # Voids 9 # Bowel Movements 3 Exam GEN: Healthy appearing, well-developed, NAD. HEENT: NC/AT; MMM. CV: RRR, no m/r/g. LUNGS: CTAB, no w/r/c. ABD: Soft, NT/ND, NBS, no masses or organomegaly. EXT: skin Warm, well perfused. no rashes. No clubbing, cyanosis, or edema. NEURO: Ambulating with no limitations. No focal deficits. Medications Current Medications Medications Dose Ordered Sig/Kareen Route Start Time Stop Time Status Last Admin Dose Admin Ceftriaxone Sodium 50 ml @ 100 mls/hr DAILY@09 IV 04/26/24 09:00 04/28/24 09:04 100 MLS/HR Acetaminophen/ Hydrocodone Bitart 1 tab Q4HP PRN PO 04/26/24 07:15 Ondansetron HCl 4 mg Q4HP PRN IV 04/26/24 07:15 Enoxaparin Sodium 40 mg DAILY SC 04/26/24 10:00 04/27/24 09:04 40 MG Acetaminophen 650 mg Q6HP PRN PO 04/26/24 07:15 04/27/24 10:55 650 MG Morphine Sulfate 2 mg Q4HPRN PRN IV 04/26/24 07:15 Polyethylene Glycol 17 gm DAILY PO 04/27/24 10:00 05/04/24 11:00 04/28/24 09:04 17 GM Patient Own Medication 1 QID PRN TOP 04/27/24 20:30 04/28/24 10:52 1 Laboratory Results Laboratory Tests 04/27/24 06:20 Urinalysis Test 04/25/24 21:11 Urine Color Yellow (Yellow) Urine Clarity Turbid (Clear) H Urine pH 7.0 (5.0-9.0) Urine Specific [place] 1.023 (1.001-1.035) Urine Protein 1+ (Negative) H Urine Ketones 1+ (Negative) H Urine Blood Negative /uL (Negative) Urine Nitrite 1+ (Negative) H Urine Bilirubin Negative (Negative) Urine Urobilinogen 3 mg/dL (Negative) H Urine Leukocyte Esterase 3+ /uL (Negative) Urine RBC 8 /hpf (0 - 4) Urine WBC 634 /hpf (0 - 5) Urine Squamous Epithelial Cells None seen /hpf (<5) Urine Bacteria Many /hpf (None Seen) H Urine Mucus Few (None Seen) Urine Glucose Normal mg/dL (Normal) Microbiology Microbiology Date/Time Source Procedure Growth Status 04/25/24 21:11 Voided Urine Urine Culture - Final Complete Labs and/or images reviewed: Labs reviewed by me, Image(s) reviewed by me Assessment/Plan Assessment/Plan update - 04/29 - amendable to SNF now. will consult social for SNF and PT needs ([facility] [place] constipation resovling, she feels better. PVR neg, no urine obstruction/retention. cleared by spinal for the old (asymptomatic) vertebral body # (incidental finding on CTabdpelv), continuing complication cytstitis tx w ctx. # left flank pain #UTI #Pyelonephritis - CT abdomen/pelvis is unconcerning for any acute process or any nephrolithiasis - UA suggestive of UTI - ucx final w multiflora. - on CTX (day 3 on 04/28) #weakness #deconditioning - she is very resistnat to idea of SNF /rehab. but now amendable. - treat issues above - PT eval - rec SNF, walker, bsc. #Left spinal # - ortho consulted. no significant pain. no acute concern for inpatient intervention. pt asymptomatic. #HTN - pt endorses on losartan. We will hold off right now given concern for infection (UTI) - HOLD OFF losartan. she has been BP at goal w/o losartan all stay duration. #cervical DJD pain - will use voltaren (not in formulary) vs po prn analgesics - p.r.n. analgesics -trial baclofen 5 mg q.p.m. #constiaption - bowel regiemn started. not having any BM. will try enema prn. - resolved 04/28. Diet regular DVT prophylaxis Lovenox GI prophylaxis patient tolerating diet Plan discussed with: Patient My Orders Orders - CHEMO TRAN MD Procedure Category Date Status Time * Electrical Equipment Technician CONS 04/29/24 Transmitted Consult 07:46 Date of Service: Apr 29, 2024 Billing Provider: CHEMO TRAN MD Common Visit Codes: NOT BILLABLE CHEMO TRAN MD Apr 29, 2024 08:00
[2024-04-29 08:41] VITALS: BP 132/65; PULSE 91; RESP 16; TEMP 98.2; O2SAT 93
[2024-04-29] MEDS ORDERED: DOCU-94 PO (12:53)
[2024-04-29] MEDS ORDERED: NITR50CA24 PO (12:53)
--- NOTE | 2024-04-29 12:58 | DVHDS2 ---
Discharge Summary Date of Admission Apr 26, 2024 at 07:04 Date of Discharge: Apr 29, 2024 Labs/Diagnostic Data: Laboratory Results Test 04/27/24 06:20 04/25/24 21:11 04/25/24 18:06 White Blood Count 9.7 10^3/uL (4.4-10.8) Red Blood Count 4.29 10^6/uL (4.0-5.20) Hemoglobin 12.4 g/dL (12.2-16.2) Hematocrit 37.3 % (36.0-46.0) Mean Corpuscular Volume 86.9 fL (80.0-100.0) Mean Corpuscular Hemoglobin 28.9 pg (28.0-32.0) Mean Corpuscular Hemoglobin Concent 33.2 g/dL (32.0-36.0) Red Cell Distribution Width 15.9 % (11.8-14.3) Platelet Count 269 10^3/uL (140-450) Mean Platelet Volume 9.1 fL (6.9-10.8) Neutrophils (%) (Auto) 80.2 % (37.0-80.0) Lymphocytes (%) (Auto) 11.3 % (10.0-50.0) Monocytes (%) (Auto) 8.0 % (0.0-12.0) Eosinophils (%) (Auto) 0.4 % (0.0-7.0) Basophils (%) (Auto) 0.1 % (0.0-2.0) Neutrophils # (Auto) 7.8 10 ^3/uL (1.6-8.6) Lymphocytes # (Auto) 1.1 10 ^3/uL (0.4-5.4) Monocytes # (Auto) 0.8 10 ^3/uL (0-1.3) Eosinophils # (Auto) 0 10 ^3/uL (0-0.8) Basophils # (Auto) 0 10 ^3/uL (0-0.2) Nucleated Red Blood Cells 0.0 % Sodium Level 134 mmol/L (136-145) Potassium Level 4.0 mmol/L (3.5-5.1) Chloride Level 105 mmol/L (98-107) Carbon Dioxide Level 23 mmol/L (20-31) Anion Gap 6 (5-15) Blood Urea Nitrogen 8 mg/dL (9-23) Creatinine 0.53 mg/dL (0.550-1.02) Glomerular Filtration Rate Calc 89 mL/min (>90) BUN/Creatinine Ratio 15.1 (10.0-20.0) Serum Glucose 122 mg/dL (74-106) Calcium Level 9.5 mg/dL (8.7-10.4) Total Bilirubin 0.7 mg/dL (0.2-1.0) Direct Bilirubin 0.2 mg/dL (<0.3) Aspartate Amino Transferase (AST) 15 U/L (13-40) Alanine Aminotransferase (ALT) 16 U/L (7-40) Alkaline Phosphatase 82 U/L (46-116) Total Protein 5.9 g/dL (5.7-8.2) Albumin 3.6 g/dL (3.2-4.8) Urine Color Yellow (Yellow) Urine Clarity Turbid (Clear) Urine pH 7.0 (5.0-9.0) Urine Specific [place] 1.023 (1.001-1.035) Urine Protein 1+ (Negative) Urine Ketones 1+ (Negative) Urine Blood Negative /uL (Negative) Urine Nitrite 1+ (Negative) Urine Bilirubin Negative (Negative) Urine Urobilinogen 3 mg/dL (Negative) Urine Leukocyte Esterase 3+ /uL (Negative) Urine RBC 8 /hpf (0 - 4) Urine WBC 634 /hpf (0 - 5) Urine Squamous Epithelial Cells None seen /hpf (<5) Urine Bacteria Many /hpf (None Seen) Urine Mucus Few (None Seen) Urine Glucose Normal mg/dL (Normal) Lactic Acid Level 1.3 mmol/L (0.4-2.0) Other Laboratory Tests 04/27/24 06:20 Brief Hx & Hospital Course: 88-year-old female w PMHx HTN p/w CC of back pain/flank pain. Patient reports with a two day history of worsening left flank pain. she has also had some intermitent bladder spasms. Denies any recent fall or trauma. She states unable to ambulate without a walker. She spends most of her time in bed due to the pain. Reports mild dysuria. No fever or chills. CT abdomen/pelvis is unconcerning for any acute process or any nephrolithiasis. UA suggestive of UTI. ucx final w multiflora. Given ssx, she is treated empirically with ctx and on discharge given macrobid. She in able to ambulate safely, PT recommends SNF rehab, walker, and BSC. also on CT abd/.pelv noted tohave lumbar fracture but is asymptmatic, no spinal TTP, no FND; ortho spinal consult is unconcerned with CT findings, and patient stable to follow-up with PCP to observe patient for neurological symptoms. BP is stble inpatent, home BP meds held. she also has significant constipation, bowel regimen helps provide relief. diagnosis: cystitis, physical deconditioning, lumbar vertebral fracture, HTN, cervical DJD, constipation. discharge plan: - dc to SNF for PT rehab. will need walker for ambulation and BSC at home/snf. - stop BP meds (losartan). BP at goal during hospital stay. - macrobid 100mg bid for 5 days for cystitis - continue colace x 1month for constipation. metamucil daily. - [facility] soft diet - follow-up with PCP to review discharge. Visitation and planning required 35 minutes Condition at Discharge: Fair Final Diagnosis/Problems List cystitis, physical deconditioning Discharge Disposition: Jail Facility Discharge Instruct/Medications Diet: See Comment Diet comment: [facility] soft Activity: No Restrictions, As Tolerated Activity comment: ambulate w walker Follow Up/Referral: PCP Medications: as below in dc instructions Discharge Statement: "Patient was advised to return to the ER or call 911 if any headaches, dizziness, shortness of breath, chest pain, abdominal pain, bleeding, fevers, or worsening of medical condition. Patient was counseled about treatment plan, medications, possible side effects, patientverbalized understanding. All questions were answered to the best of my ability. This discharge took greater then 30 minutes in planning, reviewing documentation, counseling the patient, and discussing with other team members." ASSESSMENT ASSESSMENT Assessment cystitis, physical deconditioning, lumbar vertebral fracture, HTN, cervical DJD, constipation. Date of Service: Apr 29, 2024 Billing Provider: CHEMO TRAN MD Common Visit Codes: 14033-OJC/OBS DISCH DAY >30min CHEMO TRAN MD Apr 29, 2024 12:58
[2024-04-29 13:00] VITALS: BP 120/56; PULSE 96; RESP 18; TEMP 98.2; O2SAT 96
[2024-04-29 16:53] VITALS: BP 138/62; PULSE 96; RESP 16; TEMP 98.9; O2SAT 96
== END 2024-04-29 19:35 | DRG 690 ==
LOC: ER 16:46 → OVERFLOW 04-26 07:04 → EAST 04-26 07:04
PROVIDERS: ADMIT Nurse Practitioner; ATTEND Student in an Organized Health Care Education/Training Program
DX: N10 Acute pyelonephritis (principal); R65.10 Systemic inflammatory response syndrome (SIRS) of non-infectious origin without acute organ dysfunction; S32.009A Unspecified fracture of unspecified lumbar vertebra, initial encounter for closed fracture; N30.90 Cystitis, unspecified without hematuria; M47.812 Spondylosis without myelopathy or radiculopathy, cervical region; I10 Essential (primary) hypertension; K59.00 Constipation, unspecified; W18.39XA Other fall on same level, initial encounter; Z88.0 Allergy status to penicillin; Y93.89 Activity, other specified; Y92.89 Other specified places as the place of occurrence of the external cause; Y99.8 Other external cause status
CPT/HCPCS: 36415; 74176; 80048; 80053; 80076; 81001; 83605; 85025; 87086; 97110; 97116; 97163; 97530; G0378; J1956